=== PATIENT | female | born 1990 | race Caucasian/White ===

== ENCOUNTER 2019-05-26 15:08 | Emergency (ER) | payer OTHER ==
--- NOTE | 2019-05-26 15:52 | ED ---
Psychiatric Complaint - HPI Summary HPI Summary: This patient is a 29-year-old female who presents to the ED with father. Patient states she was told to come here by police after an argument with her mother. She reports she had an argument with her mother and her mother stated she was no longer welcome at their home where she resides currently. Patient states she grabbed her medications to leave and her mother took this as an attempt for an overdose/suicide. She has had one episode 8 months ago of an attempted overdose and suicide attempt. She states she had never told her mother she was suicidal, but her mother called the police and police stated she needs to come here for an evaluation. Patient adamantly denies any suicidal thoughts. She denies any self-harm. She has not taken her medications outside of her prescribed doses since her suicidal attempt 8 months ago. 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 Father at bedside also states he is not concerned at this point for suicide and states she has a safe place to come home to upon discharge. Patient is tearful that she is here. She also reports she is actively in alcohol recovery, attends meetings daily and has a sponsor. Social history includes smoking. Lives with parents. Past medical history includes PTSD, depression and anxiety. - History Of Current Complaint Chief Complaint: EDPsychosocial Time Seen by Provider: 05/26/19 15:28 Hx Obtained From: Patient ?: No Onset/Duration: Sudden Onset Timing: Constant Severity Initially: Moderate Severity Currently: Moderate Aggravating Factor(s): Nothing Associated Signs And Symptoms: Positive: Negative Has Suicidal: Reports: Has Prior Attempt(s) - prior attempts at suicide - Allergies/Home Medications Allergies/Adverse Reactions: Allergies Allergy/AdvReac Type Severity Reaction Status Date / Time No Known Allergies Allergy Verified 05/26/19 15:14 PMH/Surg Hx/FS Hx/Imm Hx Previously Healthy: Yes - Immunization History Hx Pertussis Vaccination: No Immunizations Up to Date: Yes Infectious Disease History: No Infectious Disease History: Denies: Traveled Outside the [place] in Last 30 Days - Social History Occupation: Unemployed Lives: With Family Alcohol Use: None Hx Substance Use: No Substance Use Type: Reports: None Hx Tobacco Use: No Smoking Status (MU): Never Smoked Tobacco Review of Systems Constitutional: Negative Negative: Fever, Chills, Fatigue, Skin Diaphoresis Negative: Palpitations, Chest Pain Negative: Shortness Of Breath, Cough Genitourinary: Negative Positive: no symptoms reported, see HPI Negative: Arthralgia, Myalgia Neurological: Negative Negative: Anxious, Depressed All Other Systems Reviewed And Are Negative: Yes Physical Exam Triage Information Reviewed: Yes Vital Signs On Initial Exam: Initial Vitals Temp Pulse Resp BP Pulse Ox 99.0 F 90 16 141/90 99 05/26/19 15:10 05/26/19 15:10 05/26/19 15:10 05/26/19 15:10 05/26/19 15:10 Vital Signs Reviewed: Yes Appearance: Positive: Well-Appearing, Well-Nourished Skin: Positive: Skin Color Reflects Adequate Perfusion Head/Face: Positive: Normal Head/Face Inspection Eyes: Positive: EOMI, Conjunctiva Clear Neck: Positive: Supple, No Lymphadenopathy Respiratory/Lung Sounds: Positive: Clear to Auscultation, Breath Sounds Present Cardiovascular: Positive: RRR, Pulses are Symmetrical in both Upper and Lower Extremities Musculoskeletal: Positive: Normal, Strength/ROM Intact Neurological: Positive: Speech Normal Psychiatric: Positive: Affect/Mood Appropriate - tearful on arrival d/t argument with mother AVPU Assessment: Alert Diagnostics - Vital Signs Vital Signs Temp Pulse Resp BP Pulse Ox 05/26/19 15:10 99.0 F 90 16 141/90 99 - Laboratory Lab Statement: Any lab studies that have been ordered have been reviewed, and results considered in the medical decision making process. Course/Dx - Course Course Of Treatment: During this course of treatment, the patient's evaluated for suicidal attempt per mother. Patient denies this. She adamantly denies any suicidal ideation at this time. She is very forward thinking, states she is attempting to look for jobs in her field, states she has a Master's degree in social work. She states she is happy with her life at this time, however there is strength at home with her mother. Father is at bedside stating she has a safe place to go home to. She does have a social work associate appointment tomorrow morning in [facility]. She attends Alcoholics Anonymous meetings daily and also has a sponsor. While she is forward thinking with no evidence of suicidal ideation, I discussed with the patient and the patient's father discharge home. They're both comfortable with this decision. - Differential Dx/Clinical Impression Differential Diagnosis/HQI/PQRI: Positive: Suicidal Ideation Provider Diagnosis: Suicide gesture Discharge - Sign-Out/Discharge Documenting (check all that apply): Patient Departure Patient Received Moderate/Deep Sedation with Procedure: No - Discharge Plan Condition: Stable Disposition: HOME Additional Instructions: Please follow up with your therapist in [place] tomorrow If you feel any suicidal thoughts, please return to the ED - we can help Please have family nearby or other support systems in place until your follow up tomorrow Continue with your at home medications as prescribed - Billing Disposition and Condition Condition: STABLE Disposition: Home
[2019-05-26 16:16] VITALS: BP 124/78
== END 2019-05-26 16:15 | disposition home or self-care (01) ==
LOC: ED 15:08
DX: F32.9 Major depressive disorder, single episode, unspecified (principal); F41.9 Anxiety disorder, unspecified; F43.10 Post-traumatic stress disorder, unspecified; Z79.899 Other long term (current) drug therapy; Z87.891 Personal history of nicotine dependence
CPT/HCPCS: 99282